=== PATIENT | male | born 1950 | race Asian ===

== ENCOUNTER → 2018-06-26 | Outpatient (CLI) | payer OTHER ==
[2018-06-26 12:36] LABS: BASOPHILS % (AUTO) 0.8 % (0.0-2.0); EOSINOPHILS % (AUTO) 3.7 % (1.0-6.0); HEMATOCRIT 49.6 % (41-53); HEMOGLOBIN 16.9 g/dL (13.5-17.5); LYMPHOCYTES # (AUTO) 1.5 K/uL (1.0-4.8); LYMPHOCYTES % (AUTO) 29.7 % (22.0-44.0); MEAN CORPUSCULAR HEMOGLOBIN 34.7 pg (26.0-34.0); MEAN CORPUSCULAR HGB CONC 34.1 G/dL (31.0-37.0); MEAN CORPUSCULAR VOLUME 102 fL (80-100); MONOCYTES # (AUTO) 0.4 K/uL (0.1-1.0); MONOCYTES % (AUTO) 8.7 % (2.0-9.0); NEUTROPHILS # (AUTO) 2.8 K/uL (1.8-7.7); NEUTROPHILS % (AUTO) 57.1 % (40.0-70.0); PLATELET COUNT (AUTO) 221 K/uL (150-450); RED BLOOD CELL COUNT(AUTO) 4.88 MIL/uL (4.50-5.90); RED CELL DISTRIBUTION WIDTH 13.4 % (11.5-14.5)
[2018-06-26 12:46] LABS: HEMOGLOBIN A1C 5.2 % (4.5-6.2)
[2018-06-26 12:50] LABS: ALANINE AMINOTRANSFERASE 34 U/L (12-78); ALBUMIN 3.9 g/dL (3.4-5.0); ALKALINE PHOSPHATASE 56 U/L (46-116); ANION GAP 4 mmol/L (8-16); BILIRUBIN,TOTAL 0.7 mg/dL (0.1-1.0); CARBON DIOXIDE 29 mmol/L (22-29); CHLORIDE 102 mmol/L (98-107); CHOLESTEROL 166 mg/dL (131-200); CREATININE 1.16 mg/dL (0.60-1.30); GLOMERULAR FILTR. RATE CALC > 60 mL/min (>60); GLUCOSE,RANDOM 103 mg/dL (70-110); HDL CHOLESTEROL 42 mg/dL (40-60); LDL CHOL (CALC.) 103 mg/dL (0-130); POTASSIUM 5.1 mmol/L (3.5-5.1); SODIUM SERUM 135 mmol/L (136-145); TOTAL PROTEIN, SERUM 8.1 g/dL (6.4-8.2); TRIGLYCERIDES 107 mg/dL (15-150); UREA NITROGEN, BLOOD 11 mg/dL (7-18)
[2018-06-26 13:03] LABS: ASPARTATE AMINOTRANSFERASE 32 U/L (15-37)
== END | disposition home or self-care (01) ==
LOC: MSR 10:22
PROVIDERS: ATTEND Legal Medicine
DX: Z00.01 Encounter for general adult medical examination with abnormal findings (principal); R06.02 Shortness of breath
CPT/HCPCS: 83036

== ENCOUNTER 2018-09-17 09:19 | Emergency (ER) | payer OTHER ==
[~2018-09-17] VITALS: Ht 162.6 cm; Wt 63.6 kg
[2018-09-17] MEDS ORDERED: SILVER NITRATE APPLICATOR 1 EA STICK TP ONE (10:30)
[2018-09-17] MEDS ORDERED: OXYMETAZOLINE HCL 0.05% 15 ML NASAL SPRAY NASAL ONE (10:30)
[2018-09-17 11:55] VITALS: BP 148/88
== END 2018-09-17 11:58 | disposition home or self-care (01) ==
LOC: EMS 09:22
DX: R04.0 Epistaxis (principal)
CPT/HCPCS: 12011; 12013

== ENCOUNTER 2025-09-08 02:09 | Emergency (ER) | payer MEDICARE ==
[~2025-09-08] VITALS: Ht 160 cm; Wt 62.7 kg
[2025-09-08 02:28] LABS: COVID AG,FIA SOURCE NASAL SWAB
[2025-09-08 02:38] LABS: PLATELET COUNT (AUTO) 195 K/uL (150-450); RED BLOOD CELL COUNT(AUTO) 4.36 MIL/uL (4.50-5.90); RED CELL DISTRIBUTION WIDTH 13.9 % (11.5-14.5); WHITE BLOOD COUNT (AUTO) 8.6 K/uL (4.5-11.0)
[2025-09-08 02:47] LABS: CALCIUM, TOTAL 8.7 mg/dL (8.8-10.5); CREATININE 1.43 mg/dL (0.60-1.30); GLOMERULAR FILTR. RATE CALC 49 mL/min (>60); GLUCOSE,RANDOM 110 mg/dL (70-110); SODIUM SERUM 136 mmol/L (136-145); UREA NITROGEN, BLOOD 16 mg/dL (7-18)
[2025-09-08 02:56] LABS: TROPONIN I-HIGH SENSITIVITY 7 ng/L (<76)
[2025-09-08 02:59] LABS: INFLUENZA TYPE A NEGATIVE FOR TYPE A (NEGATIVE); INFLUENZA TYPE B NEGATIVE FOR TYPE B (NEGATIVE); SARS-COV2 (COVID) ANTIGEN,FIA Negative (Negative)
[2025-09-08] MEDS: BENZONATATE 100 MG CAPSULE PO ONE (03:15)
[2025-09-08] MEDS: ALBUTEROL SULFATE HFA 90 MCG/PUFF 8 GM INHALER IH ONE (04:07)
[2025-09-08] MEDS ORDERED: BENZ-227 PO (04:55)
[2025-09-08 05:09] LABS: TROPONIN I-HIGH SENSITIVITY 6 ng/L (<76)
[2025-09-08] MEDS: ACETAMINOPHEN 500 MG TABLET PO ONE (05:45)
[2025-09-08 06:09] VITALS: BP 137/74; PULSE 89; RESP 16; TEMP 98.3; O2SAT 98
== END 2025-09-08 06:30 | disposition home or self-care (01) ==
LOC: EMS 02:10
DX: J06.9 Acute upper respiratory infection, unspecified (principal); R05.9 Cough, unspecified; B97.89 Other viral agents as the cause of diseases classified elsewhere; J45.909 Unspecified asthma, uncomplicated; Z87.442 Personal history of urinary calculi; Z98.890 Other specified postprocedural states; Z20.822 Contact with and (suspected) exposure to COVID-19
CPT/HCPCS: 99285; 71045; 87426; 80048; 83880; 84484; 85025; 87804; 36415; 94640; 93005; J3535